=== PATIENT | female | born 1970 | race Caucasian/White ===

== ENCOUNTER 2017-12-01 12:20 | Emergency (ER) | payer BC, OTHER ==
--- NOTE | 2017-12-01 12:56 | UC ---
Lower Extremity/Ankle HPI - HPI Summary HPI Summary: 47 yo female presents with left foot/heel pain. She tells me that over the last year she has had this pain to some degree, but over the last week has significantly increased. Her pain used to be on the plantar aspect of her heel, but now is more at the base of her achilles. She tells me that she works a job that requires her to be on her feet often and has been told in the past that she has plantar fasciitis. Has never tried a shoe insert or seen Ortho/ podiatry. Denies specific injury, numbness, or tingling. - History of Current Complaint Chief Complaint: UCLowerExtremity Stated Complaint: ANKLE PAIN Time Seen by Provider: 12/01/17 12:55 Hx Obtained From: Patient Onset/Duration: Gradual Onset Severity Initially: Mild Severity Currently: Mild Pain Intensity: 3 Pain Scale Used: 0-10 Numeric Aggravating Factor(s): Standing, Ambulation Alleviating Factor(s): Rest Able to Bear Weight: Yes - Allergies/Home Medications Allergies/Adverse Reactions: Allergies Allergy/AdvReac Type Severity Reaction Status Date / Time No Known Allergies Allergy Verified 12/01/17 12:42 Home Medications: Home Medications Acetaminophen [APAP] 650 mg PO 12/01/17 [History] PMH/Surg Hx/FS Hx/Imm Hx - Additional Past Medical History Additional PMH: None Previously Healthy: Yes - Surgical History Surgical History: None - Family History Known Family History: Positive: None - Social History Occupation: Employed Full-time Lives: With Family Alcohol Use: None Substance Use Type: None Smoking Status (MU): Never Smoked Tobacco Review of Systems Constitutional: Negative Skin: Negative Respiratory: Negative Cardiovascular: Negative Neurovascular: Negative Musculoskeletal: Other: - Left heel pain Neurological: Negative Psychological: Negative All Other Systems Reviewed And Are Negative: Yes Physical Exam - Summary Physical Exam Summary: GENERAL: NAD. WDWN. No pain distress. SKIN: No rashes, sores, lesions, or open wounds. NECK: Supple. Nontender. No lymphadenopathy. CHEST: No accessory muscle use. Breathing comfortably and in no distress. CV: Pulses intact PT and DP. Brisk cap refill. MSK: LEFT foot: Moderate TTP at achilles tendon. Pain with dorsiflexion. FROM. Strength 5/5. No edema or obvious bony deformities. Negative talar tilt. No increased laxity. Negative [place] test. NEURO: Alert. Sensations intact and symmetric B/L LEs PSYCH: Age appropriate behavior. Triage Information Reviewed: Yes Vital Signs: Initial Vital Signs Temp 98.7 F 12/01/17 12:38 Pulse 65 12/01/17 12:38 Resp 18 12/01/17 12:38 BP 118/60 12/01/17 12:38 Pulse Ox 100 12/01/17 12:38 Vital Signs Reviewed: Yes Lower Extremity Course/Dx - Course Course Of Treatment: XR: IMPRESSION: NO ACUTE OSSEOUS INJURY. IF SYMPTOMS PERSIST, RECOMMEND REPEAT IMAGING. Suspect achilles tendinitis vs plantar fasciitis. Pt declined CAM boot or post-op shoe. Will try OTC shoe insert and f/ u with podiatry. - Differential Dx/Diagnosis Provider Diagnoses: left achilles tendinitis Discharge - Sign-Out/Discharge Documenting (check all that apply): Patient Departure - Discharge Plan Condition: Stable Disposition: HOME Patient Education Materials: Plantar Fasciitis (ED), Achilles Tendinitis (ED) Referrals: No Primary Care Phys,NOPCP [Primary Care Provider] - Rodri Limon DPM [Doctor of Podiatric Medicine] - As Soon As Possible Additional Instructions: If you develop a fever, shortness of breath, chest pain, new or worsening symptoms - please call your PCP or go to the ED. 1) Please follow up with Podiatry as soon as possible for further evaluation - Billing Disposition and Condition Condition: STABLE Disposition: Home
--- NOTE | 2017-12-01 13:45 | RAD ---
HISTORY: Heel pain COMPARISONS: None VIEWS: 3, Frontal, lateral, and oblique views of the left foot FINDINGS: BONE DENSITY: Normal. BONES: There is no displaced fracture. JOINTS: There is no arthropathy. ALIGNMENT: There is no dislocation. SOFT TISSUES: Unremarkable. OTHER FINDINGS: None. IMPRESSION: NO ACUTE OSSEOUS INJURY. IF SYMPTOMS PERSIST, RECOMMEND REPEAT IMAGING.
== END 2017-12-01 14:00 | disposition home or self-care (01) ==
LOC: UCEAST 12:20
DX: M76.62 Achilles tendinitis, left leg (principal)
CPT/HCPCS: 99201; G0463

== ENCOUNTER 2018-04-01 19:16 | Emergency (ER) | payer BC ==
[2018-04-01] MEDS ORDERED: Tetan/Diph/Pertus SYR(Tdap)* 0.5 ML SYR(BOOSTRIX) use SYR IM ONE (20:07)
[2018-04-01] MEDS ORDERED: Lidocaine 1%* 5 ML VIAL INJ ONE (20:08)
[2018-04-01 20:49] VITALS: BP 135/82
--- NOTE | 2018-04-01 21:10 | UC ---
Lower Extremity/Ankle HPI - HPI Summary HPI Summary: 47-year-old woman comes in to clinic today with a chief complaint of injury to the left great toe. Having just prior to arrival a cow stepped on her great toe. She only had sneakers on. It hurts to bear any weight. Is a laceration that bled quite a bit the bleeding stopped with direct pressure. Not walking minimize the pain. Is not sure when her last tetanus was. - History of Current Complaint Chief Complaint: UCWounds Stated Complaint: TOE INJURY Time Seen by Provider: 04/01/18 20:02 Pain Intensity: 0 - Allergies/Home Medications Allergies/Adverse Reactions: Allergies Allergy/AdvReac Type Severity Reaction Status Date / Time No Known Allergies Allergy Verified 04/01/18 20:09 PMH/Surg Hx/FS Hx/Imm Hx Previously Healthy: Yes - Surgical History Surgical History: None - Family History Known Family History: Positive: None, Non-Contributory - Social History Alcohol Use: None Substance Use Type: None Smoking Status (MU): Never Smoked Tobacco Review of Systems All Other Systems Reviewed And Are Negative: Yes Constitutional: Positive: Negative Skin: Positive: Other - SEE HPI Eyes: Positive: Negative ENT: Positive: Negative Respiratory: Positive: Negative Cardiovascular: Positive: Negative Gastrointestinal: Positive: Negative Motor: Positive: Negative Neurovascular: Positive: Negative Musculoskeletal: Positive: Other: - SEE HPI Neurological: Positive: Negative Psychological: Positive: Negative Is Patient Immunocompromised?: No Physical Exam Triage Information Reviewed: Yes Appearance: Well-Appearing, No Pain Distress, Well-Nourished Vital Signs: Initial Vital Signs Temp 97.9 F 04/01/18 20:03 Pulse 69 04/01/18 20:03 Resp 18 04/01/18 20:03 BP 135/82 04/01/18 20:03 Pulse Ox 100 04/01/18 20:03 Vital Signs Reviewed: Yes Eye Exam: Normal Eyes: Positive: Conjunctiva Clear Neck exam: Normal Neck: Positive: Supple Respiratory: Positive: No respiratory distress Musculoskeletal: Positive: Strength Intact, ROM Intact Neurological Exam: Normal Neurological: Positive: Alert, Muscle Tone Normal Psychological Exam: Normal Psychological: Positive: Normal Response To Family, Age Appropriate Behavior Skin: Positive: Other - 1.5CM LINEAR SC LACERATION DORSUM OF LEFT GREAT TOE Procedures - Laceration/Wound Repair 1 Location: Other - LEFT GREAT TOE Description: Linear Anesthesia: Local, Lido Betadine Prep?: No - SOAKED SHURCLENS STERILE SALINE Laceration/Wound Explored: clean Closure: Single Layer Debridement: NONE Suture Type: Prolene - 4-0 Number of Sutures: 3 Layer Closure?: No Sterile Dressing Applied?: Yes Lower Extremity Course/Dx - Course Course Of Treatment: I discussed the x-rays with the patient. I do not see any fracture. Radiologist reading is pending. Patient will be on Keflex she got it T tap here in clinic. He was out in 8-10 days. Return for reevaluation if any signs of infection or any other questions or concerns. - Differential Dx/Diagnosis Provider Diagnosis: Crushing injury of great toe, left, Laceration of left great toe Discharge - Sign-Out/Discharge Documenting (check all that apply): Patient Departure All imaging exams completed and their final reports reviewed: No - Discharge Plan Condition: Stable Disposition: HOME Prescriptions: Cephalexin CAP* [Keflex CAP*] 500 mg PO QID #38 cap Patient Education Materials: Care For Your Stitches (ED), Laceration (ED), Crush Injury (ED) Referrals: [facility] [place] PH[facility]IAN REFERRAL [Outside] Additional Instructions: FOLLOW UP WITH YOUR DOCTOR. SUTURES OUT IN 8-10 DAYS. YOU HAD A TDAP (TETANUS, DIPTHERIA, PERTUSSIS) IMMUNIZATION TODAY. GET RECHECKED FOR ANY WORSENING OF YOUR CONDITION; PAIN, SIGNS OF INFECTION OR QUESTIONS OR CONCERNS. - Billing Disposition and Condition Condition: STABLE Disposition: Home
[2018-04-01] MEDS ORDERED: Cephalexin CAP* 500 MG PO ONE ×2 (21:11)
--- NOTE | 2018-04-02 10:40 | UC ---
- Progress Note Progress Note: Radiology report reviewed. No fracture or acute process. No change in management Course/Dx - Diagnoses Provider Diagnoses: Crushing injury of great toe, left, Laceration of left great toe Discharge - Sign-Out/Discharge Documenting (check all that apply): Post-Discharge Follow Up All imaging exams completed and their final reports reviewed: Yes - Discharge Plan Condition: Stable Disposition: HOME Prescriptions: Cephalexin CAP* [Keflex CAP*] 500 mg PO QID #38 cap Patient Education Materials: Care For Your Stitches (ED), Laceration (ED), Crush Injury (ED) Referrals: [facility] [place] [facility]IAN REFERRAL [Outside] Additional Instructions: FOLLOW UP WITH YOUR DOCTOR. SUTURES OUT IN 8-10 DAYS. YOU HAD A TDAP (TETANUS, DIPTHERIA, PERTUSSIS) IMMUNIZATION TODAY. GET RECHECKED FOR ANY WORSENING OF YOUR CONDITION; PAIN, SIGNS OF INFECTION OR QUESTIONS OR CONCERNS. - Billing Disposition and Condition Condition: STABLE Disposition: Home
== END 2018-04-01 21:26 | disposition home or self-care (01) ==
LOC: UCEAST 19:16
DX: S97.112A Crushing injury of left great toe, initial encounter (principal); S91.112A Laceration without foreign body of left great toe without damage to nail, initial encounter; W55.29XA Other contact with cow, initial encounter; Y92.79 Other farm location as the place of occurrence of the external cause
CPT/HCPCS: 90715; 99212; A9270-GY; G0463